=== PATIENT | male | born 1955 | race Caucasian/White ===

== ENCOUNTER 2016-07-12 07:31 | Emergency (ER) | payer OTHER ==
[2016-07-12 07:31] VITALS: BP 114/87
--- NOTE | 2016-07-12 14:58 | ED.ADGEN ---
Past History Past Medical History: P.U.D Past Surgical History: No Surgical History Alcohol Use: Occasionally Drug Use: None Social History Narrative: THC in high school Adult General Chief Complaint Chief Complaint Multiple medical complaints [facility] Patient is a 61-year-old male presents with altered mental medical complaints. Patient reports cough, nasal and chest congestion for the past several days. No chest pain, short of breath or wheezing. Patient also reports nontraumatic left posterior bursa swelling and redness. Patient denies fever, erythema or history of MRSA. No fever chills or sweats. No other symptoms or complaints. Review of Systems Review of Systems ROS as per HPI. Allergies Allergies Allergies Coded Allergies Type Severity Reaction Last Updated Verified No Known Drug Allergies 07/12/16 No Physical Exam Physical Exam Constitutional: Well developed, well nourished, no acute distress, non-toxic appearance. HENT: Normocephalic, atraumatic, bilateral external ears normal, oropharynx moist, no oral exudates, nose, congestion with clear rhinorrhea. Eyes: PERRLA, EOMI, conjunctiva normal. Neck: Normal range of motion, no tenderness, supple. Cardiovascular:Heart rate regular rhythm. Lungs & Thorax: Bilateral breath sounds clear to auscultation. Abdomen: Bowel sounds normal, soft, no tenderness. Skin: Warm, dry, no erythema. Back: No tenderness. Extremities: Left elbow, posterior olecranon versus swelling and erythema, no induration or streaking or joint pain or pain with range of motion. No streaking crusting or weeping. No evidence of trauma. Neurologic: Alert and oriented X 3, normal motor function, normal sensory function, no focal deficits noted. Psychologic: Affect normal, judgement normal, mood normal. Current Patient Data Vital Signs Vital Signs Date Time Temp Pulse Resp B/P Pulse Ox O2 Delivery O2 Flow Rate FiO2 07/12/16 07:31 98.5 106 18 94 Room Air EKG EKG [] Radiology/Procedures Radiology/Procedures [] Impressions: Upper respiratory tract infection and left olecranon bursitis Course & Med Decision Making Course & Med Decision Making Pertinent Labs and Imaging studies reviewed. (See chart for details) [Patient not sure of breath, lung sounds clear, O2 sats saturation 93% on room air. Left elbow, no joint pain, swelling or pain with range of motion. Cellulitis and septic arthritis considered but thought less likely. Recommend supportive care with PCP follow-up. Return precautions reviewed.] Final Impression Final Impression [#1 acute bronchitis #2 left posterior olecranon bursitis] Problems: Gerardo Disclaimer Drag[place]ee Disclaimer This electronic medical record was generated, in whole or in part, using a voice recognition dictation system. JASMYN COHEN DO Jul 12, 2016 14:58
== END 2016-07-12 07:55 | disposition home or self-care (01) ==
LOC: ER 07:31
DX: J20.9 Acute bronchitis, unspecified (principal); M70.22 Olecranon bursitis, left elbow; Y93.89 Activity, other specified
CPT/HCPCS: 99282

== ENCOUNTER 2017-01-26 07:01 | Observation (INO) | payer OTHER ==
[~2017-01-26] VITALS: Ht 175.3 cm; Wt 78.0 kg
[2017-01-26] MEDS ORDERED: PANTOPRAZOLE IV PUSH 40 MG VIAL. IVP ONE (07:30)
--- NOTE | 2017-01-26 07:44 | PHYS DOC ---
General Chief Complaint: DIZZY/LIGHT HEADED Stated Complaint: NA Time Seen by MD: 07:02 Source: patient Exam Limitations: no limitations Problems: History of Present Illness Initial Comments Patient is a 61-year-old male with history of peptic ulcer disease coming private auto complaining of dizziness, shortness of breath, and episodes of chest discomfort. Patient states that he awoke at 2 AM to go to the restroom, he says his balance felt off and he was dizzy when trying to walk similar to when he was severely anemic from a passed H pylori infection which was treated. He states that at that time he was seen at [facility] and his last EGD took place then, he thinks it was in the late s. He's had no GI follow-up but has avoided NSAIDs and alcohol and says he's had no stool changes or epigastric discomfort consistent with those past symptoms. He denies any recent allergy or upper respiratory infection symptoms, he had no cough or nasal drainage and denies any ear fullness and muffled hearing or discomfort. This morning he awoke around 5:30 to get ready to go to work. He says he noticed he was unusually short of breath with dyspnea on exertion, he had the persistent dizziness which he describes as no spinning or rotation just weak and wobbly on his feet. Though symptoms are mildly improved when he is resting versus up and active but are present with activity and rest. Approximately 45 minutes prior to arrival (0615) he says he was bending forward and felt two episodes of chest discomfort he describes as "twinges" he points to his left pectoral and describes a squeezing moderate discomfort which lasted maybe a minute and resolved spontaneously. This occurred twice he denies any new diaphoresis arm or neck symptoms or nausea and says his dizziness did not worsen during those 2 episodes. Patient follows at [place] he last had a stress test he thinks around the year 1999 which was normal. He works out several times a week for required PT and denies any other medical history than the H. pylori peptic ulcer disease which she says almost required a blood transfusion. Patient denies history of smoking, no hypertension, diabetes, hyperlipidemia, and says his grandparent may have required a pacemaker in old age but otherwise no family history of coronary artery disease. Patient has been taking care of his spouse who has a broken foot but admits that is his only new recent stressor he denies chest pain in the department but does appear somewhat anxious. ED VS: 98, 83, 16, 143/90, 97% RA Timing/Duration: 1 hour (chest pain), 4-6 hours (dizziness) Severity: moderate Modifying Factors: improves with other Associated Symptoms: chest pain, malaise, shortness of breath, weakness Allergies: Coded Allergies: No Known Drug Allergies (Unverified , 01/26/17) Past Medical History Medical History: GI bleed, peptic ulcer disease, other (H pylori peptic ulcer disease with GI bleed treated [facility] "late ") Surgical History: noncontributory Social History Smoker: non-smoker Alcohol: none Drugs: none Review of Systems Constitutional: denies chills, denies diaphoresis, denies fever, malaise EENTM: denies eye pain, denies blurred vision, denies double vision, denies ear pain, denies ear discharge, denies nose pain, denies nose congestion, denies throat pain, denies throat swelling Respiratory: denies cough, denies orthopnea, shortness of breath, denies wheezing Cardiovascular: see HPI, chest pain, denies palpitations, denies syncope Gastrointestinal: see HPI, denies diarrhea, denies nausea, denies vomiting Genitourinary: denies dysuria, denies frequency, denies hematuria, denies pain Musculoskeletal: denies back pain, denies joint pain, denies muscle pain, denies neck pain Psychiatric/Neurological: see HPI, denies headache, denies numbness, denies paresthesia Hematologic/Lymphatic: see HPI, denies blood clots, denies easy bleeding, denies easy bruising Physical Exam General Appearance: WD/WN, no apparent distress (mildly anxious) Eyes: bilateral eye normal inspection, bilateral eye PERRL, bilateral eye EOMI Ear, Nose, Throat: hearing grossly normal, normal ENT inspection (excessive hair in nares but no discharge noted, TMs are clear bilaterally with moderate amount of cerumen in the left canal no serous fluid noted, pharynx is clear no postnasal drip visualized.), normal pharynx Neck: non-tender, full range of motion, supple (no bruits auscultated bilaterally) Respiratory: chest non-tender, normal breath sounds, no respiratory distress Cardiovascular: normal peripheral pulses, regular rate, rhythm (trace pitting lower extremity edema bilaterally patient states this is not new) Gastrointestinal: normal bowel sounds, non tender, soft, no organomegaly, no pulsatile mass Back: no CVA tenderness, no vertebral tenderness Extremities: normal range of motion, non-tender, normal inspection Neurologic/Psychiatric: reconcilement clerk II-XII nml as tested, no motor/sensory deficits, alert, normal mood/affect, oriented x 3 Skin: normal color, warm/dry Orders, Labs, Meds EKG: Normal sinus rhythm 67 bpm no STEMI or other acute ischemic changes noted, interpreted by Dr. Cain. 0738: No aspirin due to patient's history of GI bleed, Protonix bolus intravenously although no recent stool changes or epigastric discomfort. PATIENT: AUBREY COVINGTON ACCOUNT: [id number] : 1955 LOCATION: ER AGE: 61 SEX: M EXAM STATUS: REG ER ORD. PHYSICIAN: VALERIE CAIN DO REASON: cp, dizzy, h/o PUD PROCEDURE: PORTABLE CHEST 1V Portable chest, 01/26/2017: History: Dizziness and chest pain The heart size and pulmonary vascularity are normal. There is minimal scarring over the pulmonary apices. No acute infiltrates are seen. There is no evidence of pleural fluid. IMPRESSION: No acute cardiopulmonary abnormality is detected. DICTATED AND SIGNED BY: SHANTAL GASTON MD DATE: 01/26/1745 CC: SID UP; VALERIE CAIN DO ~ 0809: CBC, CMP, coags, CE, lipase all WNL. I discussed this with pt, but since his CP first occurred 614 I recommend inpatient evaluation for serial CE/ echo. Pt is agreeable, office professional Hospitalist Dr Newberry paged. [phone]: I discussed the patient with Dr. Newberry. After thorough discussion of the patient he requests that the patient be placed on telemetry and observation with serial cardiac enzymes, echocardiogram and cardiology consultation also requested. Patient is agreeable and remains asymptomatic at this time. Departure Time of Disposition: 08:11 Disposition: ADMITTED INPATIENT Diagnosis: chest pain Condition: STABLE Additional Instructions: Dr Newberry accepts care of patient as above. VALERIE CAIN DO Jan 26, 2017 07:44
[2017-01-26 07:46] LABS: BASO % 0 % (0-3); EOS # 0.1 x10^3/uL (0.0-0.7); EOS % 1 % (0-3); HEMATOCRIT 45.3 % (39.0-53.0); HEMOGLOBIN 15.7 g/dL (13.0-17.5); LYMPH # 1.2 x10^3/uL (1.0-4.8); LYMPH % 24 % (24-48); MEAN CORPUSCULAR HEMOGLOBIN 30 pg (25-35); MEAN CORPUSCULAR HGB CONC 35 g/dL (31-37); MEAN CORPUSCULAR VOLUME 86 fL (79-100); MONO # 0.4 x10^3/uL (0.0-1.1); MONO % 8 % (0-9); NEUT # 3.3 x10^3uL (1.8-7.7); NEUT % 67 % (31-73); PLATELET COUNT 156 x10^3/uL (140-400); RED BLOOD COUNT 5.27 x10^6/uL (4.30-5.70); RED CELL DISTRIBUTION WIDTH 13.4 % (11.5-14.5); WHITE BLOOD COUNT 4.9 x10^3/uL (4.0-11.0)
--- NOTE | 2017-01-26 07:49 | RAD ---
Portable chest, 01/26/2017: History: Dizziness and chest pain The heart size and pulmonary vascularity are normal. There is minimal scarring over the pulmonary apices. No acute infiltrates are seen. There is no evidence of pleural fluid. IMPRESSION: No acute cardiopulmonary abnormality is detected.
[2017-01-26 07:58] LABS: ALBUMIN/GLOBULIN RATIO 1.4 (1.0-1.7); CALCIUM 9.1 mg/dL (8.5-10.1); GFR 76.5; MAGNESIUM 2.2 mg/dL (1.8-2.4); POTASSIUM 3.8 mmol/L (3.5-5.1); TOTAL BILIRUBIN 0.6 mg/dL (0.2-1.0); TOTAL PROTEIN 6.8 g/dL (6.4-8.2)
[2017-01-26 08:08] LABS: BARBITURATES NEG (NEG); BENZODIAZEPINES NEG (NEG); CANNABINOIDS NEG (NEG); COCAINE NEG (NEG); METHADONE NEG (NEG); OPIATES NEG (NEG); PHENCYCLIDINE NEG (NEG)
[2017-01-26 08:09] LABS: AMPHETAMINE/METHAMPHETAMINE NEG (NEG)
[2017-01-26 08:12] LABS: BACTERIA,URINE 0 /HPF (0-FEW); BILIRUBIN,URINE NEG (NEG); CLARITY,URINE CLEAR; COLOR,URINE YELLOW; GLUCOSE,URINE NEG (NEG); NITRITE,URINE NEG (NEG); RBC,URINE 0 /HPF (0-2); SQUAMOUS EPITHELIAL CELL,UR OCC /LPF; UROBILINOGEN,URINE 0.2 mg/dL (0.2 mg/dL); WBC,URINE 0 /HPF (0-4)
[2017-01-26] MEDS ORDERED: ONDANSETRON PF 4 MG/2 ML VIAL. IV PRN (08:30)
[2017-01-26] MEDS ORDERED: NITROGLYCERIN SUBLINGUAL 0.4 MG BOTTLE OF 25. SL PRN (08:30)
[2017-01-26] MEDS ORDERED: ACETAMINOPHEN 325 MG TABLET PO PRN (08:30)
--- NOTE | 2017-01-26 09:40 | PDOC2 ---
CONSULT Date of Admission DATE: 01/26/17 TIME: 09:39 Reason for Consult: cp History of Present Illness Mr Umana is a 61 year old male who presented with complaints of lightheadedness , shortness of breath and chest discomfort. He reports getting up in the middle of the night to use the restroom and feeling off balance. He went back to bed and got up at his normal time to get ready for work. He felt again off balance. He reports bending down and having a couple of "twinges" in his chest followed by a tightness that was not increased by exertion going up and down stairs. He says it lasted about 10 minutes. He also reports some mild shortness of breath that slowly increased as he assisted his getting ready for work so presented to the ED. He has a history of prior bleeding ulcer and apparently thought the symptoms were similar. He denies any other symptoms. He works out regularly at the gym without problems. Past Medical History PUD Past Surgical History none significant Family History no coronary disease Social History non smoker, rare ETOH, no illicit drugs, [place] [employer] [place] Current Medications No home meds Current Medications Pantoprazole Sodium (Protonix Vial) 40 mg 1X ONCE IVP Last administered on t 07:42; Start 01/26/17 at 07:30; Stop 01/26/17 at 07:31; Status DC Ondansetron HCl (Zofran) 4 mg PRN Q4HRS PRN IV NAUSEA/VOMITING; Start at 08:30; Stop 01/27/17 at 08:29 Acetaminophen (Tylenol) 650 mg PRN Q4HRS PRN PO FEVER; Start 01/26/17 at 08:30 ; Stop 01/27/17 at 08:29 Nitroglycerin (Nitrostat) 0.4 mg PRN Q5MIN PRN SL CHEST PAIN; Start 01/26/17 at 08:30; Stop 01/27/17 at 08:29 Allergies: Coded Allergies: No Known Drug Allergies (Unverified , 01/26/17) Review of System as per HPI or negative General: Alert, Oriented X3, Cooperative, No acute distress HEENT: Atraumatic, EOMI, Mucous membr. moist/pink Lungs: Clear to auscultation, Normal air movement Heart: Regular rate, Normal S1, Normal S2, No murmurs, Other (no gallops, clicks or rubs) Abdomen: Normal bowel sounds, Soft, No tenderness Extremities: No cyanosis, No edema, Normal pulses Neuro: Normal speech, Strength at 5/5 X4 ext Psych/Mental Status: Mental status NL, Mood NL VITALS Vital Signs Date Time Temp Pulse Resp B/P (MAP) Pulse Ox O2 Delivery O2 Flow Rate FiO2 01/26/17 08:38 66 16 131/83 (99) 95 01/26/17 08:08 Room Air 01/26/17 07:09 98.0 Labs Laboratory Tests Test 01/26/17 07:30 01/26/17 07:47 White Blood Count 4.9 x10^3/uL (4.0-11.0) Red Blood Count 5.27 x10^6/uL (4.30-5.70) Hemoglobin 15.7 g/dL (13.0-17.5) Hematocrit 45.3 % (39.0-53.0) Mean Corpuscular Volume 86 fL (79-100) Mean Corpuscular Hemoglobin 30 pg (25-35) Mean Corpuscular Hemoglobin Concent 35 g/dL (31-37) Red Cell Distribution Width 13.4 % (11.5-14.5) Platelet Count 156 x10^3/uL (140-400) Neutrophils (%) (Auto) 67 % (31-73) Lymphocytes (%) (Auto) 24 % (24-48) Monocytes (%) (Auto) 8 % (0-9) Eosinophils (%) (Auto) 1 % (0-3) Basophils (%) (Auto) 0 % (0-3) Neutrophils # (Auto) 3.3 x10^3uL (1.8-7.7) Lymphocytes # (Auto) 1.2 x10^3/uL (1.0-4.8) Monocytes # (Auto) 0.4 x10^3/uL (0.0-1.1) Eosinophils # (Auto) 0.1 x10^3/uL (0.0-0.7) Basophils # (Auto) 0.0 x10^3/uL (0.0-0.2) Prothrombin Time 10.5 SEC (9.4-11.4) Prothromb Time International Ratio 1.0 (0.9-1.1) Activated Partial Thromboplast Time 26 SEC (23-33) Sodium Level 143 mmol/L (136-145) Potassium Level 3.8 mmol/L (3.5-5.1) Chloride Level 106 mmol/L (98-107) Carbon Dioxide Level 27 mmol/L (21-32) Anion Gap 10 (6-14) Blood Urea Nitrogen 13 mg/dL (8-26) Creatinine 1.0 mg/dL (0.7-1.3) Estimated GFR (Cockcroft-Gault) 76.5 BUN/Creatinine Ratio 13 (6-20) Glucose Level 105 mg/dL (70-99) Calcium Level 9.1 mg/dL (8.5-10.1) Magnesium Level 2.2 mg/dL (1.8-2.4) Total Bilirubin 0.6 mg/dL (0.2-1.0) Aspartate Amino Transf (AST/SGOT) 18 U/L (15-37) Alanine Aminotransferase (ALT/SGPT) 21 U/L (16-63) Alkaline Phosphatase 83 U/L (46-116) Creatine Kinase 82 U/L (39-308) Troponin I Quantitative < 0.017 ng/mL (0-0.055) Total Protein 6.8 g/dL (6.4-8.2) Albumin 4.0 g/dL (3.4-5.0) Albumin/Globulin Ratio 1.4 (1.0-1.7) Lipase 160 U/L (73-393) Urine Collection Type Unknown Urine Color Yellow Urine Clarity Clear Urine pH 7.0 Urine Specific [place] 1.015 Urine Protein Neg (NEG-TRACE) Urine Glucose (UA) Neg mg/dL (NEG) Urine Ketones (Stick) Neg mg/dL (NEG) Urine Blood Neg (NEG) Urine Nitrite Neg (NEG) Urine Bilirubin Neg (NEG) Urine Urobilinogen Dipstick 0.2 mg/dL (0.2 mg/dL) Urine Leukocyte Esterase Neg (NEG) Urine RBC 0 /HPF (0-2) Urine WBC 0 /HPF (0-4) Urine Squamous Epithelial Cells Occ /LPF Urine Bacteria 0 /HPF (0-FEW) Urine Opiates Screen Neg (NEG) Urine Methadone Screen Neg (NEG) Urine Barbiturates Neg (NEG) Urine Phencyclidine Screen Neg (NEG) Urine Amphetamine/Methamphetamine Neg (NEG) Urine Benzodiazepines Screen Neg (NEG) Urine Cocaine Screen Neg (NEG) Urine Cannabinoids Screen Neg (NEG) Urine Ethyl Alcohol Neg (NEG) Images EKG - sinus rhythm with non specific changes Assessment/Plan 1. Chest pain, atypical 2. abn EKG - non specific changes 3. dyspnea on exertion 4. lightheadedness Suggest check orthostatics and monitor serial enzymes. Echo is pending. If enzymes continue to be negative could have stress test as outpatient. Problems: SHELBY FERNANDEZ SODA DISPENSER Jan 26, 2017 09:40
[2017-01-26 10:45] VITALS: BP 132/86
[2017-01-26] MEDS ORDERED: FLU VACC QS2017-18 (36MOS+)/PF 0.5 ML SYRINGE. VAX IM ONE (13:00)
--- NOTE | 2017-01-26 13:12 | EKG ---
[address] [address] Test Date: 2017-01-26 Test Time: 07:09:34 Pat Name: AUBREY COVINGTON Department: Room: 121 A Gender: M Fish Receiver: LEVON : 1955 Requested By: VALERIE CAIN Order Number: [id number] Reading MD: Trevon Hill Measurements Intervals [place] Rate: 67 P: 28 NH: 148 QRS: 56 QRSD: 92 T: 31 QT: 368 QTc: 391 Interpretive Statements SINUS RHYTHM Electronically Signed On 02-04-2017 8:12:40 CDT by Trevon Hill
[2017-01-26] MEDS ORDERED: CALCIUM CARBONATE 500 MG TAB.CHEW PO PRN (14:00)
[2017-01-26 15:10] VITALS: BP 129/84
[2017-01-26 16:44] LABS: CREATININE 0.9 mg/dL (0.7-1.3); GFR 86.4; POTASSIUM 3.9 mmol/L (3.5-5.1)
[2017-01-26 17:04] LABS: HEMOGLOBIN 15.6 g/dL (13.0-17.5); RED BLOOD COUNT 5.22 x10^6/uL (4.30-5.70); RED CELL DISTRIBUTION WIDTH 13.7 % (11.5-14.5); WHITE BLOOD COUNT 5.4 x10^3/uL (4.0-11.0)
[2017-01-26] MEDS ORDERED: IOHEXOL 300 MG/ML 75 ML VIAL. IV ONE ×2 (18:45→19:00)
[2017-01-26 19:40] VITALS: BP 152/91
--- NOTE | 2017-01-26 19:44 | CARD ---
APPROVED REPORT EXAM: Two-dimensional and M-mode echocardiogram with Doppler and color Doppler. Other Information Quality : GoodHR: 58bpm Rhythm : NSRBradycardia INDICATION Chest Pain 2D DIMENSIONS Left Atrium(2D)3.0 (1.6-4.0cm)IVSd1.0 (0.7-1.1cm) Aortic Root(2D)3.0 (2.0-3.7cm)LVDd4.3 (3.9-5.9cm) LVOT Diameter2.2 (1.8-2.4cm)PWd0.7 (0.7-1.1cm) LA Viggwr73 (18-58mL)LVDs3.2 (2.5-4.0cm) FS (%) 25.4 %SV42.2 ml LVEF(%)50.4 (>50%) Aortic Valve AoV Peak Johnny.125.8cm/sAoV VTI27.6cm AO Peak GR.6.3mmHgLVOT Peak Johnny.115.4cm/s LVOT VTI 19.74cmAO Mean GR.4mmHg LISA (VMAX)3.34ks0GYY (VTI)2.74cm2 Mitral Valve MV E Pjxhgefu88.4cm/sMV E Peak Gr.1mmHg MV DECEL [id number] A Hmoykwar98.8cm/s MV E Mean Gr.1mmHgE/A Ratio1.9 MV A [id number] Pulmonary Valve PV Peak Huqtuvmb03.7cm/sPV Peak Grad.3mmHg Tricuspid Valve TR P. Ffnuhrrm916sp/sTR Peak Gr.11mmHg Pulmonary Vein S1 Bueuazkj80.7cm/sD2 Okbcjsyn74.2cm/s LEFT VENTRICLE The left ventricle is normal size. There is normal left ventricular wall thickness. The left ventricu lar systolic function is normal and the ejection fraction is within normal range. LV ejection fractio n of 50-55%. There is normal LV segmental wall motion. No left ventricle thrombus noted on this study . There is no ventricular septal defect visualized. There is no left ventricular aneurysm. RIGHT VENTRICLE The right ventricle is normal size. There is normal right ventricular wall thickness. The right ventr icular systolic function is normal. ATRIA The left atrium size is normal. The right atrium size is normal. The interatrial septum is intact wit h no evidence for an atrial septal defect or patent foramen ovale as noted on 2-D or Doppler imaging. AORTIC VALVE The aortic valve is normal in structure and function. Doppler and Color Flow revealed no significant aortic regurgitation. There is no significant aortic valvular stenosis. There is no aortic valvular v egetation. MITRAL VALVE The mitral valve is normal in structure and function. There is no evidence of mitral valve prolapse. There is no mitral valve stenosis. Doppler and Color Flow revealed mild mitral regurgitation. TRICUSPID VALVE The tricuspid valve is normal in structure and function. Doppler and Color Flow revealed trace to mil d tricuspid regurgitation. There is no tricuspid valve prolapse or vegetation. There is no tricuspid valve stenosis. PULMONIC VALVE The pulmonary valve is normal in structure and function. Doppler and Color Flow revealed trace to mil d pulmonic valvular regurgitation. There is no pulmonic valvular stenosis. GREAT VESSELS The aortic root is normal in size. The ascending aorta is normal in size. The IVC is normal in size a nd collapses >50% with inspiration. PERICARDIAL EFFUSION There is no pleural effusion. There is no evidence of significant pericardial effusion. Critical Notification Critical Value: No <Conclusion> The left ventricle is normal size. The left ventricular systolic function is normal and the ejection fraction is within normal range. LV ejection fraction of 50-55%. There is no significant aortic valvular stenosis. Doppler and Color Flow revealed no significant aortic regurgitation. Doppler and Color Flow revealed mild mitral regurgitation. Doppler and Color Flow revealed trace to mild tricuspid regurgitation.
[2017-01-26 23:40] VITALS: BP 134/75
--- NOTE | 2017-01-27 01:25 | RAD ---
CT CHEST ABD PELVIS W/CONTRAST dated 01/26/2017 7:00 PM Indication:..Chest pain early this AM.HX of ulcer. Incidental finding from echo. Vikoufypp01,75ml used with no complication. Comparison: No comparison is available. Technique: Contiguous axial imaging of the chest abdomen and pelvis performed after the intravenous administration of 75 cc Omnipaque 300. One or more of the following individualized dose reduction techniques were utilized for this examination: 1. Automated exposure control 2. Adjustment of the mA and/or kV according to patient size 3. Use of iterative reconstruction technique Findings: Heart size within normal limits. No pericardial effusion. No mediastinal, hilar or axillary lymphadenopathy. Thyroid gland unremarkable. Central airways are patent. Lungs are clear without focal consolidation. Mild patchy dependent opacity in the lower lobes, likely atelectasis. No consolidation or pleural effusion. No pneumothorax. Liver, spleen, pancreas, adrenal glands and gallbladder are unremarkable. Large low-density mass at the mid to upper pole right kidney measures up to 10.7 cm in size with some peripheral calcification. Additional low-density foci at the mid to lower pole left kidney and upper pole of bilateral kidney, likely cysts. No hydronephrosis. Unopacified GI tract is normal in caliber and contour. No focal bowel wall thickening. No inflammatory changes in the mesentery. No ascites or lymphadenopathy. Images of pelvis a moderately distended urinary bladder. Prostate gland moderately enlarged. No free fluid or lymphadenopathy. The seminal vesicles are prominent and of low density. Bone windows show no acute findings. Mild multilevel spondylosis. IMPRESSION CHEST: 1. No acute abnormality of chest. IMPRESSION ABDOMEN PELVIS: 1. No acute abnormality of abdomen or pelvis. 2. Bilateral renal cysts. There is a large mildly complicated cyst of the right kidney measuring up to 10.6 cm in size. 3. Prostatomegaly with nonspecific cystic enlargement of the bilateral seminal vesicles. Electronically signed by: Dandy Loyd MD (01/27/2017 1:22 AM) [id number]
[2017-01-27 05:04] VITALS: BP 127/76
[2017-01-27 06:27] LABS: BASO % 0 % (0-3); EOS # 0.1 x10^3/uL (0.0-0.7); EOS % 1 % (0-3); HEMATOCRIT 48.2 % (39.0-53.0); HEMOGLOBIN 16.5 g/dL (13.0-17.5); LYMPH # 1.2 x10^3/uL (1.0-4.8); LYMPH % 14 % (24-48); MEAN CORPUSCULAR HEMOGLOBIN 30 pg (25-35); MEAN CORPUSCULAR HGB CONC 34 g/dL (31-37); MEAN CORPUSCULAR VOLUME 87 fL (79-100); MONO # 0.6 x10^3/uL (0.0-1.1); MONO % 8 % (0-9); NEUT # 6.4 x10^3uL (1.8-7.7); NEUT % 77 % (31-73); PLATELET COUNT 159 x10^3/uL (140-400); RED BLOOD COUNT 5.55 x10^6/uL (4.30-5.70); RED CELL DISTRIBUTION WIDTH 13.5 % (11.5-14.5); WHITE BLOOD COUNT 8.3 x10^3/uL (4.0-11.0)
[2017-01-27 06:41] LABS: CALCIUM 9.2 mg/dL (8.5-10.1); GFR 76.5; POTASSIUM 4.1 mmol/L (3.5-5.1)
--- NOTE | 2017-01-27 09:00 | PDOC ---
PROGRESS NOTES Assessment 1. Chest pain, atypical - TN ruled out. Normal LV function and wall motion by echo. Mild MR. MPI this am. 2. abn EKG - non specific changes 3. dyspnea on exertion - no evidence of heart failure. 4. lightheadedness - no arrhythmias or hypotension Problems: Subjective no chest pain, no dyspnea or lightheadedness Objective Echo 01/26/17 The left ventricle is normal size. The left ventricular systolic function is normal and the ejection fraction is within normal range. LV ejection fraction of 50-55%. There is no significant aortic valvular stenosis. Doppler and Color Flow revealed no significant aortic regurgitation. Doppler and Color Flow revealed mild mitral regurgitation. Doppler and Color Flow revealed trace to mild tricuspid regurgitation. Vital Signs Date Time Temp Pulse Resp B/P (MAP) Pulse Ox O2 Delivery O2 Flow Rate FiO2 01/27/17 05:04 97.3 67 18 127/76 (93) 96 01/26/17 23:40 Room Air Abdomen: Normal bowel sounds, Soft Heart: Regular rate, Normal S1, Normal S2 Extremities: No cyanosis, No edema, Normal pulses General: Alert, Oriented X3, Cooperative, No acute distress HEENT: Atraumatic, EOMI Lungs: Clear to auscultation, Normal air movement Neuro: Normal speech, Strength at 5/5 X4 ext Psych/Mental Status: Mental status NL, Mood NL Review of Relevant I have reviewed the following items davey (where applicable) has been applied. Labs Laboratory Tests Test 01/26/17 07:30 01/26/17 07:47 01/26/17 13:30 01/26/17 16:25 White Blood Count 4.9 x10^3/uL (4.0-11.0) 5.4 x10^3/uL (4.0-11.0) Red Blood Count 5.27 x10^6/uL (4.30-5.70) 5.22 x10^6/uL (4.30-5.70) Hemoglobin 15.7 g/dL (13.0-17.5) 15.6 g/dL (13.0-17.5) Hematocrit 45.3 % (39.0-53.0) 45.0 % (39.0-53.0) Mean Corpuscular Volume 86 fL (79-100) 86 fL (79-100) Mean Corpuscular Hemoglobin 30 pg (25-35) 30 pg (25-35) Mean Corpuscular Hemoglobin Concent 35 g/dL (31-37) 35 g/dL (31-37) Red Cell Distribution Width 13.4 % (11.5-14.5) 13.7 % (11.5-14.5) Platelet Count 156 x10^3/uL (140-400) 156 x10^3/uL (140-400) Neutrophils (%) (Auto) 67 % (31-73) Lymphocytes (%) (Auto) 24 % (24-48) Monocytes (%) (Auto) 8 % (0-9) Eosinophils (%) (Auto) 1 % (0-3) Basophils (%) (Auto) 0 % (0-3) Neutrophils # (Auto) 3.3 x10^3uL (1.8-7.7) Lymphocytes # (Auto) 1.2 x10^3/uL (1.0-4.8) Monocytes # (Auto) 0.4 x10^3/uL (0.0-1.1) Eosinophils # (Auto) 0.1 x10^3/uL (0.0-0.7) Basophils # (Auto) 0.0 x10^3/uL (0.0-0.2) Prothrombin Time 10.5 SEC (9.4-11.4) Prothromb Time International Ratio 1.0 (0.9-1.1) Activated Partial Thromboplast Time 26 SEC (23-33) Sodium Level 143 mmol/L (136-145) 142 mmol/L (136-145) Potassium Level 3.8 mmol/L (3.5-5.1) 3.9 mmol/L (3.5-5.1) Chloride Level 106 mmol/L (98-107) 105 mmol/L (98-107) Carbon Dioxide Level 27 mmol/L (21-32) 31 mmol/L (21-32) Anion Gap 10 (6-14) 6 (6-14) Blood Urea Nitrogen 13 mg/dL (8-26) 15 mg/dL (8-26) Creatinine 1.0 mg/dL (0.7-1.3) 0.9 mg/dL (0.7-1.3) Estimated GFR (Cockcroft-Gault) 76.5 86.4 BUN/Creatinine Ratio 13 (6-20) Glucose Level 105 mg/dL (70-99) 92 mg/dL (70-99) Calcium Level 9.1 mg/dL (8.5-10.1) 9.0 mg/dL (8.5-10.1) Magnesium Level 2.2 mg/dL (1.8-2.4) Total Bilirubin 0.6 mg/dL (0.2-1.0) Aspartate Amino Transf (AST/SGOT) 18 U/L (15-37) Alanine Aminotransferase (ALT/SGPT) 21 U/L (16-63) Alkaline Phosphatase 83 U/L (46-116) Creatine Kinase 82 U/L (39-308) Troponin I Quantitative < 0.017 ng/mL (0-0.055) < 0.017 ng/mL (0-0.055) < 0.017 ng/mL (0-0.055) Total Protein 6.8 g/dL (6.4-8.2) Albumin 4.0 g/dL (3.4-5.0) Albumin/Globulin Ratio 1.4 (1.0-1.7) Triglycerides Level 61 mg/dL (0-150) Cholesterol Level 172 mg/dL (0-200) LDL Cholesterol, Calculated 105 mg/dL (0-100) VLDL Cholesterol, Calculated 12 mg/dL (0-40) Non-HDL Cholesterol Calculated 117 mg/dL (0-129) HDL Cholesterol 55 mg/dL (40-60) Cholesterol/HDL Ratio 3.0 Lipase 160 U/L (73-393) Urine Collection Type Unknown Urine Color Yellow Urine Clarity Clear Urine pH 7.0 Urine Specific [place] 1.015 Urine Protein Neg (NEG-TRACE) Urine Glucose (UA) Neg mg/dL (NEG) Urine Ketones (Stick) Neg mg/dL (NEG) Urine Blood Neg (NEG) Urine Nitrite Neg (NEG) Urine Bilirubin Neg (NEG) Urine Urobilinogen Dipstick 0.2 mg/dL (0.2 mg/dL) Urine Leukocyte Esterase Neg (NEG) Urine RBC 0 /HPF (0-2) Urine WBC 0 /HPF (0-4) Urine Squamous Epithelial Cells Occ /LPF Urine Bacteria 0 /HPF (0-FEW) Urine Opiates Screen Neg (NEG) Urine Methadone Screen Neg (NEG) Urine Barbiturates Neg (NEG) Urine Phencyclidine Screen Neg (NEG) Urine Amphetamine/Methamphetamine Neg (NEG) Urine Benzodiazepines Screen Neg (NEG) Urine Cocaine Screen Neg (NEG) Urine Cannabinoids Screen Neg (NEG) Urine Ethyl Alcohol Neg (NEG) Test 01/27/17 06:00 White Blood Count 8.3 x10^3/uL (4.0-11.0) Red Blood Count 5.55 x10^6/uL (4.30-5.70) Hemoglobin 16.5 g/dL (13.0-17.5) Hematocrit 48.2 % (39.0-53.0) Mean Corpuscular Volume 87 fL (79-100) Mean Corpuscular Hemoglobin 30 pg (25-35) Mean Corpuscular Hemoglobin Concent 34 g/dL (31-37) Red Cell Distribution Width 13.5 % (11.5-14.5) Platelet Count 159 x10^3/uL (140-400) Neutrophils (%) (Auto) 77 % (31-73) Lymphocytes (%) (Auto) 14 % (24-48) Monocytes (%) (Auto) 8 % (0-9) Eosinophils (%) (Auto) 1 % (0-3) Basophils (%) (Auto) 0 % (0-3) Neutrophils # (Auto) 6.4 x10^3uL (1.8-7.7) Lymphocytes # (Auto) 1.2 x10^3/uL (1.0-4.8) Monocytes # (Auto) 0.6 x10^3/uL (0.0-1.1) Eosinophils # (Auto) 0.1 x10^3/uL (0.0-0.7) Basophils # (Auto) 0.0 x10^3/uL (0.0-0.2) Sodium Level 145 mmol/L (136-145) Potassium Level 4.1 mmol/L (3.5-5.1) Chloride Level 107 mmol/L (98-107) Carbon Dioxide Level 32 mmol/L (21-32) Anion Gap 6 (6-14) Blood Urea Nitrogen 12 mg/dL (8-26) Creatinine 1.0 mg/dL (0.7-1.3) Estimated GFR (Cockcroft-Gault) 76.5 Glucose Level 102 mg/dL (70-99) Calcium Level 9.2 mg/dL (8.5-10.1) Medications Current Medications Pantoprazole Sodium (Protonix Vial) 40 mg 1X ONCE IVP Last administered on 07:42; Start 01/26/17 at 07:30; Stop 01/26/17 at 07:31; Status DC Ondansetron HCl (Zofran) 4 mg PRN Q4HRS PRN IV NAUSEA/VOMITING; Start at 08:30; Stop 01/27/17 at 08:29; Status DC Acetaminophen (Tylenol) 650 mg PRN Q4HRS PRN PO FEVER; Start 01/26/17 at 08:30 ; Stop 01/27/17 at 08:29; Status DC Nitroglycerin (Nitrostat) 0.4 mg PRN Q5MIN PRN SL CHEST PAIN; Start 01/26/17 at 08:30; Stop 01/27/17 at 08:29; Status DC Influenza Virus Vaccine Quadrival (Fluarix Quad [id number] Syringe) 0.5 ml ONCE ONCE VAX IM Last administered on 01/26/17 16:27; Start 01/26/17 at 13:00; Stop 01/26/17 at 13:01; Status DC Calcium Carbonate/ Glycine (Tums) 500 mg PRN AFTMEALHC PRN PO INDIGESTION Last administered on 01/26/17 14:00; Start 01/26/17 at 14:00 Iohexol (Omnipaque 300 Mg/ml) 75 ml 1X ONCE IV Last administered on 18:57; Start 01/26/17 at 18:45; Stop 01/26/17 at 18:46; Status DC Iohexol (Omnipaque 300 Mg/ml) 75 ml 1X ONCE IV ; Start 01/26/17 at 19:00; Stop 01/26/17 at 19:01; Status DC Vitals/I & O Vital Sign - Last 24 Hours 01/26/17 01/26/17 01/26/17 01/26/17 10:45 15:10 19:40 19:40 Temp 97.7 97.0 97.7 Pulse 63 65 67 Resp 20 20 20 B/P (MAP) 132/86 (101) 129/84 (99) 152/91 (111) Pulse Ox 96 97 97 O2 Delivery Room Air Room Air Room Air 01/26/17 01/27/17 23:40 05:04 Temp 97.6 97.3 Pulse 69 67 Resp 18 18 B/P (MAP) 134/75 (94) 127/76 (93) Pulse Ox 96 96 O2 Delivery Room Air SHELBY FERNANDEZ APRN Jan 27, 2017 09:00
--- NOTE | 2017-01-27 11:44 | RAD ---
APPROVED REPORT Test Type: Exercise Stress Nurse/Tech: RT Skye (Melodie) (N) Test Indications: chest pain Cardiac History: none Medications: see ehr Medical History: see ehr Resting ECG: SR Resting Heart Rate: 65 bpm Resting Blood Pressure: 144/88mmHg Pretest Chest Pain: None Nurse/Tech Notes Consent: The procedure was explained to the patient in lay terms. Informed consent was witnessed. Jose Raul eout was entered into [employer]. History and Stress Test performed by RT Skye (Melodie) (N) POST EXERCISE Reason for Termination: Patient request, foot discomfort Target HR: Yes Max HR: 158 bpm 98% of Maximum Predicted HR: 161 bpm Exercise duration: 10:34 min:sec, 4 Stage Exercise capacity: 13.4METs Max Blood Pressure: 140/87mmHg Chest Pain: No. INTERPRETATION Stress EKG Conclusion: No acute changes were noted but the EKG strips are quite limited due to motion artifact. Baseline EKG does not reveal any significant pathology and the peak stress EKG does not re ruby any significant ischemia. Exercise EKG grossly do not reveal any evidence of ischemia. Imaging Protocol IMAGE PROTOCOL: Rest Tc-99m/stress Tc-99m 1 day Rest: Stress: Viability: Radiopharm.Tc99m [id number] Sestamibi Dose11.3mCi 32.5mCi Duration 20min. 15min. Img Date 01/27/2017 01/27/2017 Inj-Img Usvz84piv. 60min. Post-Injection Exercise: 2 MINUTES Rest Admin Site:IV - Right ForearmAdministrator: RT Skye (Melodie)(N) Stress Admin Site: IV - Right ForearmAdministrator: RT Skye (Melodie)(N) STRESS DATA End Diast. Vol.80.0mlAv. Heart Rate90.0bpm LVEDV index BSA1.0mlCardiac Output0.1L/min End Syst. Vol.23.0mlCO Index BSA5.1L/min LVESV index BSA0.0mlMyocardial Uama672.0g Eject. Ylrsnfft71.0% Stress Rates Pk. Fill Rate4.03EDV/secLVtime Pk. Fill 195.37msec Pk. Empty Rate5.05ESV/secLVtime Pk. Bxftm194.11msec 1/3 Pk. Fill0.95EDV/sec Stress Scores Regional WT0.00Summed WT0.00 Regional WM0.00Summed WM3.00 The rest and stress images show normal perfusion, normal contraction and thickening. LV Perf. Quant 17 Seg. SSS0.00 17 Seg. SRS1.00 17 Seg. SDS0.00 Stress Defect Extent (% LAD)0.00Rest Defect Extent (% LAD)2.50Rev. Defect Extent (% LAD)0.00 Stress Defect Extent (% LCX) 0.00Rest Defect Extent (% LCX)0.00Rev. Defect Extent (% LCX)0.00 Stress Defect Extent (% RCA)0.00Rest Defect Extent (% RCA)0.00Rev. Defect Extent (% RCA)0.00 Stress Defect Extent (% SHAHLA)0.00Rest Defect Extent (% SHAHLA)0.90Rev. Defect Extent (% SHAHLA)0.00 Other Information Quality:Average Risk Assessment: Low Risk Conclusion 1. Grossly normal EKG at baseline and peak exercise. During study EKG suboptimal due to motion artifa ct. Grossly no ischemia by EKG criteria. 2. Excellent work load with 13.4 Mets achieved. 3. Normal perfusion at stress/rest. 4. Low risk study. 5. EF > 70%
[2017-01-27 13:30] VITALS: BP 125/81
--- NOTE | 2017-01-27 13:38 | HP ---
ADMIT DATE: 01/26/2017 HISTORY OF PRESENT ILLNESS: The patient is a 61-year-old male patient who came with a complaint of lightheadedness, shortness of breath and chest discomfort. He reports getting up in the middle of the night to use the restroom and feeling unsteady. He went back to bed and got up at his normal time around 5:00 a.m., again felt unsteady and had chest twinges on his left side. At 6:30, he started complaining of shortness of breath and chest pain and came to the Emergency Room for further evaluation. He also reports that he has a history of prior bleeding ulcer and apparently thought the symptoms were similar. He denied any nausea or vomiting. Denied any diaphoresis. He was evaluated in the Emergency Room and has had an EKG and his first set of cardiac enzyme was normal. His EKG showed sinus rhythm with nonspecific changes. He was admitted and has had 2 more sets of cardiac enzymes that were negative and his troponin was less than 0.017. He has an arrangement for an echocardiogram and the plan was for him to be discharged and to have a stress test done as an outpatient. When the echocardiogram tap and die maker technician did the echocardiogram, it showed that he has an abnormal mass below the liver and therefore the patient was kept overnight and we arranged for him to have a CT scan of the chest, abdomen and pelvis to elucidate further and with a plan to do the stress test the next day. PAST MEDICAL HISTORY: Significant for gastric ulcer due to Helicobacter pylori, was treated with antibiotic; however, at that time, he did not require any blood transfusion. PAST SURGICAL HISTORY: Significant for esophagogastroduodenoscopy and colonoscopy. ALLERGIES: He has no known drug allergies. MEDICATIONS: He is on ozjb-get-nmpyova medication mostly multivitamin and Tylenol. FAMILY HISTORY: He has one brother older and alive and healthy. Father is alive at age of 86 and has skin cancer. Mother is alive and is survived some form of cancer that he does not know exactly the nature of it. SOCIAL HISTORY: He is , has 2 sons and 1 daughter. Never smoked. Drinks alcohol occasionally. He does not use any drugs. 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 REVIEW OF SYSTEMS: The patient denied any blurring of vision, cataract, glaucoma or macular degeneration. Denied any earache, tinnitus or sensorineural deafness. Denied any nosebleeds, stuffy nose or postnasal drip. Denied any sore throat, sore tongue, toothache, hoarseness of voice or difficulty swallowing. Denied any nausea, vomiting, diarrhea or constipation. Denied any hematemesis, melena or hematochezia. Denied any dysuria, frequency or hematuria. Did complain of dizziness, lightheadedness, and shortness of breath and chest discomfort. PHYSICAL EXAMINATION: GENERAL: On arrival to the Emergency Room, he looked well and was clearly in no apparent distress. No pallor, jaundice, cyanosis or thyromegaly. No jugular venous distention. No limb edema. VITAL SIGNS: His heart rate was 74, blood pressure 130/92, temperature was 98, respiratory rate was 16, and oxygen saturation was 97% on room air. HEENT: Showed normocephalic, atraumatic. NECK: Supple. HEART: Showed normal first and second heart sounds. No gallop, rub or murmur. CHEST: Clear to auscultation. No crepitation or rhonchi. ABDOMEN: Distended, soft, nontender. No guarding or rigidity. No organomegaly. Hernial orifices intact. Bowel sounds normal. NEUROLOGIC: He was awake, alert, responding appropriately. Cranial nerves intact. EXTREMITIES: He moves extremities without difficulty, ambulates without assistance or assistive devices. LABORATORY DATA: On admission showed that his white cell count was 4900, hemoglobin 15.7, hematocrit 45.3, MCV 86 and platelet count of 156,000 with normal manual differential. His prothrombin time was 10.5, INR 1, aPTT 26. His chemistry showed a serum sodium OF 143, potassium 3.8, chloride 106, bicarbonate 27, anion gap of 10, BUN 13, creatinine 1, estimated GFR was 76 mL per minute. His glucose was 105, calcium was 9.1, magnesium 2.2. Total bilirubin, AST, ALT, alkaline phosphatase were normal. Total protein was 6.8, albumin 4. Lipase was 160 and his first set of cardiac enzymes showed troponin to be less than 0.017. His urinalysis was unremarkable. Urine toxicology screen was negative. He has had a chest x-ray, which basically showed the heart size and pulmonary vascularity are normal. There is minimal scarring over the pulmonary apices. No acute infiltrates are seen. There is no evidence of pleural fluid. ASSESSMENT AND PLAN: As he has 2 more sets of cardiac enzymes that were negative, the plan initially was for him to have an echocardiogram and to be discharged home; however, that condition reported the mass below the liver and therefore the patient was kept overnight. We did order a CT scan of the chest, abdomen and pelvis and also arranged for him to have a nuclear stress test. So basically this is a 61-year-old male patient who was admitted with atypical chest pain. His EKG was abnormal, but he had 3 sets of cardiac enzymes that were negative. We arranged for him to have an echocardiogram that was done; however, the tap and die maker technician reported that she saw a mass below the liver. She could not elicit further that so arranged for him to have a CT scan of the chest, abdomen and pelvis. We will obviously await for the reading of the CT scan and also arrange for him to have a nuclear stress test and decide on further management accordingly. SULEMA MCKEON MD DR: SELWYN/raymond JOB#: [id number] / [id number]
--- NOTE | 2017-01-28 15:10 | DS ---
DATE OF DISCHARGE: 01/27/2017 HISTORY OF PRESENT ILLNESS: The patient is a 61-year-old male patient who came complaining of chest pain. Did complain of dizziness, lightheadedness, and shortness of breath, chest discomfort. He has had 3 sets of cardiac enzymes that ruled out myocardial infarction. His fasting lipid profile showed serum triglyceride of 61, total cholesterol 172, LDL was 105, VLDL was 12, and HDL cholesterol was 55. He has had an echocardiogram done, which basically showed that the left ventricle is normal in size and systolic function is normal and ejection fraction of 50-55%. There is no significant aortic valve stenosis. No significant aortic, mitral or tricuspid regurgitation. When he had an echocardiogram, it showed that he has a mass below the liver and we did a CT scan of the chest with abdomen and pelvis and it showed that he has a large cyst on the upper pole of the pole of the right kidney. He has had a nuclear stress test, which showed grossly normal EKG at baseline and peak suboptimal due to motion artifact; however, grossly no ischemia by EKG criteria, excellent workload with 13.4 METs achieved, normal perfusion at stress and rest, low risk study, ejection fraction more than 70%. The Cardiology team recommended that the patient can be discharged as all his labs, CT scan and nuclear stress test, echocardiogram and cardiac enzymes all were negative. For his cyst, I gave him the report of CT scan and recommended that he should follow up with his primary care physician to arrange for an appointment with the urologist to further elucidate the finding as he has a large cyst on the upper pole of right kidney and a smaller cyst in the upper pole of left kidney. PHYSICAL EXAMINATION: GENERAL: On the day of discharge, he looked well and saw was clearly in no apparent respiratory distress, slightly pale, but no jaundice, cyanosis, lymphadenopathy or thyromegaly. No jugular venous distention. No limb edema. VITAL SIGNS: His heart rate was 84, blood pressure 125/81, temperature was 98.1, respiratory rate 20, and oxygen saturation was 97%. HEENT: Showed normocephalic, atraumatic. NECK: Supple. HEART: Showed normal first and second heart sounds with no gallop, rub or murmur. CHEST: Clear to auscultation. No crepitation or rhonchi. ABDOMEN: Distended, soft, nontender. No guarding or rigidity. No organomegaly. Hernial orifices intact. Bowel sounds normal. NEUROLOGICAL: He was awake, alert, responding appropriately and cranial nerves are intact. He moves extremities without difficulty, ambulates without assistance or assistive devices. LABORATORY DATA: Showed a white cell count of 8300, hemoglobin was 16.5, hematocrit 48, MCV 87 and platelet count of 159,000. His chemistry showed a serum sodium of 145, potassium 4.1, chloride 107, bicarbonate 32, anion gap of 6, BUN 12, creatinine 1, estimated GFR was 76 mL per minute. His glucose was 102, calcium was 9.2. His prothrombin time was 10.5, INR 1, aPTT was 26. Urinalysis was unremarkable and toxicology was negative. DISCHARGE INSTRUCTIONS: The patient was discharged home to follow up with his primary care physician as he was not on any medications. SULEMA MCKEON MD DR: SELWYN/raymond JOB#: [id number] / [id number]
== END 2017-01-27 14:45 | disposition home or self-care (01) ==
LOC: ER 07:01 → 1 SOUTH 08:19
PROVIDERS: ADMIT Internal Medicine; ATTEND Internal Medicine
DX: R42 Dizziness and giddiness (principal); R06.02 Shortness of breath; R07.89 Other chest pain; N28.1 Cyst of kidney, acquired; Z23 Encounter for immunization
CPT/HCPCS: 36415; 71010; 71260; 74177; 78452; 80048; 80053; 80061; 80307; 81001; 82550; 83690; 83735; 84484; 85025; 85027; 85610; 85730; 90471; 90686; 93005; 93017; 93306; 96374; 99285; A9500; C9113; G0378; Q9967; 96376; G0379; G0479

== ENCOUNTER 2019-09-21 06:21 | Emergency (ER) | payer OTHER ==
[~2019-09-21] VITALS: Ht 175.3 cm; Wt 68.3 kg
[2019-09-21 06:21] VITALS: BP 150/94
[2019-09-21] MEDS ORDERED: DEXAMETHASONE 4 MG TABLET PO ONE (06:45)
[2019-09-21] MEDS ORDERED: GABAPENTIN 100 MG CAPSULE. PO ONE (06:45)
[2019-09-21] MEDS ORDERED: LIDO1ADH63 TP (06:51)
[2019-09-21] MEDS ORDERED: GABA-585 PO (06:51)
--- NOTE | 2019-09-21 06:51 | PHYS DOC ---
Past History Past Medical History: Other Past Surgical History: No Surgical History Alcohol Use: Rarely Drug Use: None General Adult HPI: HPI: 64M RHD with PMH of HL, p/w atraumatic RUE pain x2 weeks, dull, radiating from right trapezius region. Seen at urgent care, told it may be muscular in etiology, Rx ibuprofen and tylenol #3. Pain radiates to distal right posterior elbow region. No weakness noted. No fall or trauma. No neck pain. Review of Systems: Review of Systems: Gen: No fever, chills. ENT: No nasal congestion, sore throat. CV: No CP, palpitations. Resp. No SOB, cough. Neuro: No SCHWAB, dizziness, weakness. MSK: No neck or back pain. Reports RUE pain. Skin: No acute rash or lesion. Heart Score: Risk Factors: Risk Factors: DM, Current or recent (<one month) smoker, HTN, HLP, family history of CAD, obesity. Risk Scores: Score 0 - 3: 2.5% MACE over next 6 weeks - Discharge Home Score 4 - 6: 20.3% MACE over next 6 weeks - Admit for Clinical Observation Score 7 - 10: 72.7% MACE over next 6 weeks - Early Invasive Strategies Allergies: Allergies: Allergies Coded Allergies Type Severity Reaction Last Updated Verified No Known Drug Allergies 01/26/17 No Physical Exam: PE: Gen: NAD. Well nourished. Head: NC/AT. Eyes: No scleral icterus. No conjunctival injection. ENT: MMM. Neck: Supple. NT. Full AROM. CV: RRR. Peripheral pulses intact. Resp: CTAB. MSK: No peripheral cyanosis. No edema. No focal TTP, overlying skin changes or deformity of RUE. Pain left with passive sidebending of neck to the left. Back: No midline TTP. Hypertonicity of right trapezius and paraspinal musculature. Neuro: A&Ox3. Strength & sensation grossly intact throughout. Skin. Warm. Dry. Psych: Appropriate mood & affect. EKG: EKG: [] Radiology/Procedures: Radiology/Procedures: [] Course & Med Decision Making: Course & Med Decision Making Pertinent Labs and Imaging studies reviewed. (See chart for details) In summary, 64M RHD p/w atraumatic RUE pain, radiating from right trap region to right elbow, improved with passive sidebending of neck to the left. No neck pain or TTP. Suspect neuropathic pain, unclear if radicular or peripheral. Will have patient continue ibuprofen, with addition of dex 10 mg PO x1, with Rx low gabapentin and lido patches. Rec outpatient MRI CS per PMD if Sx persist. Gerardo Disclaimer: Gerardo Disclaimer: This electronic medical record was generated, in whole or in part, using a voice recognition dictation system. Departure Departure: Impression: Primary Impression: Neuropathic pain of upper extremity Disposition: HOME/RESIDENCE PRIOR TO ADM Condition: STABLE Referrals: [facility] (PCP) Patient Instructions: Pain, Neuropathic-Brief Additional Instructions: Please continue the ibuprofen, with the addition of the prescribed medications. Please follow up with your primary physician. If you have continued symptoms, you may benefit from outpatient imaging (i.e. MRI) of your cervical spine per primary physician's discretion. Scripts Gabapentin (GABAPENTIN ) 100 Mg Capsule 100 MG PO TID for NEUROGENIC PAIN, #30 CAP Prov: ARIS MAGDALENO DO 09/21/19 Lidocaine (Lidocaine) 1 Each Adh..patch 1 EACH TP Q12HR for pain, #10 PATCH Prov: ARIS MAGDALENO DO 09/21/19 Justification of Admission: Justification of Admission: Justification of Admission Dx: N/A ARIS MAGDALENO DO Sep 21, 2019 06:51
== END 2019-09-21 07:02 | disposition home or self-care (01) ==
LOC: ER 06:21
DX: G62.9 Polyneuropathy, unspecified (principal); M79.641 Pain in right hand
CPT/HCPCS: 99283; J8540

== ENCOUNTER 2021-08-07 16:43 | Emergency (ER) | payer OTHER ==
[~2021-08-07] VITALS: Ht 175.3 cm; Wt 80.4 kg
[~2021-08-07 16:43] MED LIST: GABA-585 PO; LIDO1ADH63 TP
--- NOTE | 2021-08-07 17:42 | PHYS DOC ---
Past History Past Medical History: High Cholesterol, Other Additional Past Medical Histor: cysts on kidneys (GEOVANNI SERRA MD) Past Surgical History: No Surgical History (GEOVANNI SERRA MD) Alcohol Use: Rarely Drug Use: None (GEOVANNI SERRA MD) General Adult EDM: Chief Complaint: URINARY RETENTION HPI: HPI: Patient is a 66-year-old male complaining of pain with urination. Patient dates he has been able to go but has been painful in his urethra. Patient states he also has had a fullness in his lower abdominal area. Denies any change in color or frequency of urination. Patient has a history of prostate cancer in his family and has regular exams and had a prostate exam in the past year and was told that there was a little more fullness on 1 side of his prostate. He has an appointment with a urologist regarding incidental findings of lesions on his kidneys. Patient denying any pain with bowel movements but states that he often has to void and have a bowel movement at the same time. States she has felt some subjective fever and chills today. Temperature is 99.9 (GEOVANNI SERRA MD) Review of Systems: Review of Systems: All other systems within normal limits except for as noted in the HPI (GEOVANNI SERRA MD) Allergies: Allergies: Allergies Coded Allergies Type Severity Reaction Last Updated Verified No Known Drug Allergies 01/26/17 No (GEOVANNI SERRA MD) Physical Exam: PE: Constitutional: Well developed, well nourished, no acute distress, non-toxic appearance. [] HENT: Normocephalic, atraumatic, bilateral external ears normal, nose normal. [] Eyes: PERRLA, conjunctiva normal, no discharge. [] Neck: No rigidity, supple, no stridor. [] Cardiovascular: Regular rate and rhythm, brisk cap refill [] Lungs & Thorax: Non labored symmetric respirations, no tachypnea or respiratory distress [] Abdomen: Soft, nondistended. : No discharge or discoloration, circumcised, no swelling or abnormal masses. Skin: Warm, dry, no erythema, no rash. [] Back: Unremarkable Extremities: No deformities, range of motion grossly intact, no lower extremity edema [] Neurologic: Alert and oriented X 3, no focal deficits noted. [] Psychologic: Affect normal, judgement normal, mood normal. [] (GEOVANNI SERRA MD) Current Patient Data: Vital Signs: Vital Signs Date Time Temp Pulse Resp B/P (MAP) Pulse Ox O2 Delivery O2 Flow Rate FiO2 08/07/21 17:17 99.9 88 16 163/90 (114) 98 Room Air (GEOVANNI SERRA MD) EKG: EKG: [] (GEOVANNI SERRA MD) Radiology/Procedures: Radiology/Procedures: [] (GEOVANNI SERRA MD) Heart Score: C/O Chest Pain: No Risk Factors: Risk Factors: DM, Current or recent (<one month) smoker, HTN, HLP, family history of CAD, obesity. Risk Scores: Score 0 - 3: 2.5% MACE over next 6 weeks - Discharge Home Score 4 - 6: 20.3% MACE over next 6 weeks - Admit for Clinical Observation Score 7 - 10: 72.7% MACE over next 6 weeks - Early Invasive Strategies (GEOVANNI SERRA MD) Course & Med Decision Making: Course & Med Decision Making Pertinent Labs and Imaging studies reviewed. (See chart for details) Initial bladder scan shows 214 mL. Patient able to void. Pending labs and CT at shift change. [] (GEOVANNI SERRA MD) Course & Med Decision Making Patient care handed off to me at checkout pending imaging. Patient awake alert and oriented no acute distress. Vital signs notable for possible low-grade fever at 99.9 and hypertension which was resolving in the emergency department without treatment. Laboratory analysis not concerning. Urinalysis not concerning for infection. CT with no new or acute findings showing bilateral renal cysts similar to prior study. Patient states he has an appointment with his urologist next week at . Discussed all findings with patient and advised to call both primary care physician and urologist in the morning to update on ED visit and set up a follow-up as soon as possible. Gave strict return precautions to the ED. Patient grateful, verbalized understanding agree with plan of discharge (RAHUL TRAORE MD) Dragon Disclaimer: Dragon Disclaimer: This electronic medical record was generated, in whole or in part, using a voice recognition dictation system. (GEOVANNI SERRA MD) Departure Departure: Impression: Primary Impression: Enlarged prostate Additional Impression: Weak urine stream Disposition: HOME / SELF CARE / HOMELESS Condition: STABLE Referrals: [facility] (PCP) Patient Instructions: Prostate Problems Additional Instructions: Thank you for coming into the emergency department tonight and allowing us to take care of you. Please read the attached information carefully to go back over some of the things we discussed. As we discussed, here today your vital signs were notable for some mild hypertension and possible borderline fever. Your laboratory analysis was not concerning at this point. Your urinalysis at this point was clear. Your CT scanning showed your bilateral renal cysts similar to your previous study but no new or acute findings as we discussed. As we discussed, even though your work-up was unremarkable here in the emergency department today it is like a snapshot and does not mean there there is not something that is going on or possibly beginning and just has not declared itself yet. It is very important that you follow-up in the morning with your primary care physician and your urologist to update on your ED visit and see if you can get a post ER follow-up visit as soon as possible for reevaluation. We discussed Tylenol and ibuprofen at home. Please come back to the emergency department immediately with any of those new or concerning symptoms that we discussed. GEOVANNI SERRA MD August 07, 2021 17:42 RAHUL TRAORE MD August 07, 2021 19:49
[2021-08-07] MEDS ORDERED: IOHEXOL 300 MG/ML 75 ML VIAL. IV ONE (18:00)
[2021-08-07 18:06] LABS: BASO % 0 % (0-3); EOS % 0 % (0-3); HEMATOCRIT 44.3 % (39.0-53.0); LYMPH # 1.6 x10^3/uL (1.0-4.8); LYMPH % 11 % (24-48); MEAN CORPUSCULAR HEMOGLOBIN 30 pg (25-35); MEAN CORPUSCULAR HGB CONC 34 g/dL (31-37); MEAN CORPUSCULAR VOLUME 88 fL (79-100); MONO # 1.4 x10^3/uL (0.0-1.1); MONO % 9 % (0-9); NEUT # 12.2 x10^3uL (1.8-7.7); NEUT % 80 % (31-73); PLATELET COUNT 198 x10^3/uL (140-400); RED BLOOD COUNT 5.05 x10^6/uL (4.30-5.70); RED CELL DISTRIBUTION WIDTH 13.3 % (11.5-14.5); WHITE BLOOD COUNT 15.3 x10^3/uL (4.0-11.0)
[2021-08-07 18:11] LABS: CALCIUM 9.2 mg/dL (8.5-10.1); GFR 75.2; POTASSIUM 4.1 mmol/L (3.5-5.1)
[2021-08-07 18:17] LABS: ALBUMIN 3.8 g/dL (3.4-5.0); ALBUMIN/GLOBULIN RATIO 1.2 (1.0-1.7)
[2021-08-07 18:46] LABS: BACTERIA,URINE 0 /HPF (0-FEW); CLARITY,URINE CLEAR; COLOR,URINE YELLOW; GLUCOSE,URINE NEG (NEG); NITRITE,URINE NEG (NEG); RBC,URINE 0 /HPF (0-2); SQUAMOUS EPITHELIAL CELL,UR OCC /LPF; UROBILINOGEN,URINE 0.2 mg/dL (0.2 mg/dL)
--- NOTE | 2021-08-07 19:08 | RAD ---
CT abdomen pelvis with contrast dated 08/07/2021 COMPARISON: 01/26/2017 INDICATION: Low abdominal pain. TECHNIQUE: Contiguous axial imaging abdomen pelvis performed following intravenous and demonstration of 75 cc Om nipaque [id number]. One or more of the following individualized dose reduction techniques were utilized for this examinat ion: 1. Automated exposure control 2. Adjustment of the mA and/or kV according to patient size 3. Use of iterative reconstruction technique FINDINGS: Limited images of lung bases are clear. Heart size is within normal limits. No pleural or pericardial effusion. Liver and spleen are homogeneous. No biliary ductal dilatation. Gallbladder unremarkable. There is a large cyst at the anterior right kidney that measures up to 11.2 cm, similar to prior stud y. Multiple additional smaller cysts bilaterally. No hydronephrosis. Pancreas, adrenal glands unremar kable. Unopacified GI tract normal in caliber and contour. No focal bowel wall thickening. No inflammatory s tranding in the mesentery. The appendix is normal in caliber. No ascites or lymphadenopathy. Abdomina l aorta normal in caliber. Images of pelvis show nondistended urinary bladder. Prostate gland is mildly enlarged. No free fluid. There is enlargement of the bilateral seminal vesicles, unchanged. Bone window show no acute finding. Multilevel spondylosis. IMPRESSION: 1. No acute abnormality of abdomen or pelvis. Normal appendix. 2. Bilateral renal cysts, similar to prior study. 3. No new or acute findings. Electronically signed by: Dandy Loyd MD (08/07/2021 7:05 PM) [facility]
[2021-08-07 19:43] VITALS: BP 154/87
[2021-08-07 20:48] LABS: % BANDS 2 % (0-9); % EOS 1 % (0-5); % LYMPHS 7 % (24-48); % MONOS 10 % (0-10); % SEGS 80 % (35-66)
[2021-08-07 20:50] LABS: ANISOCYTOSIS SLIGHT; PLT ESTIMATE ADEQUATE (ADEQUATE)
== END 2021-08-07 19:56 | disposition home or self-care (01) ==
LOC: ER 16:43
DX: N40.0 Benign prostatic hyperplasia without lower urinary tract symptoms (principal); R39.12 Poor urinary stream; E78.00 Pure hypercholesterolemia, unspecified; Z85.46 Personal history of malignant neoplasm of prostate
CPT/HCPCS: 36415; 74177; 80053; 81001; 85007; 85025; 99285; Q9967